=== PATIENT | male | born 1980 | race Asian ===

== ENCOUNTER 2024-12-02 19:26 | Emergency (ER) | payer OTHER, SELFPAY ==
--- OUTSIDE RECORDS SUMMARY | 2024-12-02 19:28 | XMS_ITS | Clinical Summary ---
[facility] Organization [facility] Address [address] [place] [address] Care Team Providers Care Taxonomist Name Role Phone Francois Pak MD Primary Care Provider [phone] Source Comments You are receiving this document as you are listed as the primary care provider,follow-up provider, or the patient has been referred to you for consultation.This is in compliance with the Medicare andCommunity [facility] Cent[facility]aid EHR Incentive Program,which states Providers who transition their patient to another setting of careor provider of care or refers their patient to another provider of care shouldprovide summary care record for each transition of care or referral. [employer] Allergies Active Allergy Reactions Criticality Noted Date Comments Bee Venom Anaphylaxis High 01/13/2023 Medications Medication Sig Dispensed Refills Start Date End Date Status polyethylene glycol-electrolyte (GO-LYTELY) 236 g oral solution Take as directed in patient instructions: drink 2000 mL at 6PM the evening before your procedure and 2000 mL 4 hours before leaving home for your procedure. 4000 mL 03/09/2024 Active bisacodyl (DULCOLAX) 5 MG enteric coated tablet Take as directed in patient instructions: 4 tablets by mouth once at 5 PM the evening before your procedure. 4 Tablet 03/09/2024 Active ondansetron (ZOFRAN) 4 MG tablet Take 1 Tablet (4 mg) by mouth every 8 hours as needed for Nausea (during bowel prep). 3 Tablet 03/09/2024 Active Active Problems Problem Noted Date Diagnosed Date Brain aneurysm 12/18/2023 Overview (12/18/2023): 12/17/2023 MRA Head: 2.2 x 2.2 mm arising from the left ophthalmic segment internal carotid artery. Repeat MRA in 6 months (May 2024) Hypertriglyceridemia 09/18/2016 Immunizations Name Administration Dates Next Due Influenza IIV4 (Quadrivalent) 0.5mL (41892) 07/28 MMR 07/27/2010 Pfizer Monovalent 12+ Purple Top 12/31/2021,0505/2021,02/12/2021 Tdap 12/31/2021,03/19/2011,10/27/2010 Family History Medical History Relation Name Comments Cancer, Colon Negative Family History Cancer, Prostate Negative Family History Social History Tobacco Use Types Packs/Day Years Used Date Smoking Tobacco: Never Passive Smoke Exposure: Never Smokeless Tobacco: Never Tobacco Cessation:Counseling Given: Not Answered Alcohol Use Standard Drinks/Week Comments Not Currently 1 (1 standard drink = 0.6 oz pur e alcohol) PHQ-2 Answer Date Recorded PHQ-2 Score 0 01/13/2023 Financial Resource Strain Answer Date R ecorded Is it hard for you to pay fo r the very basics like food, housing, medical care or heating? No 01/13/2023 Food Insecurity Answer Date Recorded Does your food run out before you have the money to buy more? No 01/13/2023 Transportation Needs Answer Date Record ed Does a lack of transportatio n keep you from your medical appointments or from getting your medications? No 023 Sex and Gender Information Value Date Recorded Sex Assigned at Male 12/31/2021 9:20 AM RN L AND D Gender Identity Male 12/31/2021 9:20 AM RN L AND D Sexual Orientation Asexual 12/31/2021 9: 20 AM RN L AND D Last Filed Vital Signs Vital Sign Reading Time Taken Comments Blood Pressure 129/79 12/31/2023 11:33 AM RN L AND D Pulse 69 12/31/2023 11:33 AM RN L AND D Temperature 36.9 C (98.5 F) 09/13/2020 9:04 AM RN L AND D Respiratory Rate 16 01/13/2023 4:26 PM CDT Oxygen Saturation 98% 09/13/2020 9:04 AM RN L AND D Inhaled Oxygen Concentration - - Weight 87.1 kg (192 lb) 12/15/2023 9:03 AM RN L AND D Height 188.5 cm (6' 2.21) 01/13/2023 4:26 PM CD T Body Mass Index 24.51 01/13/2023 4:26 PM CDT Plan of Treatment Health Maintenance Due Date Last Done Comments Colon Cancer Screening Plan Due 1980 HepB (1) 1997 Adult Preventive Visit 01/14/2024 3, 12/31/2021 COVID-19 Vaccine (4 - 2023-2 5 season) 2024 12/31/2021, 03/03/2021, 02/12/2021 Influenza (#1) 2024 08/17/2020 Cholesterol 01/14/2028 01/13/2023, 12/31/2021 Zoster/Shingles (1 of 2) 2028 DTaP/Tdap/Td (4 - Tdap) 01/01/2032 01/01/20, 03/19/2011, 10/27/2010 HIV Screening (Preventive Services) Completed 01/13/2023 Hep C Screening (Preventive Services) Completed 01/13/2023 HepA Aged Out No longer eligi ble based on patient's age to complete this topic Hib Aged Out No longer eligi ble based on patient's age to complete this topic IPV (Polio) Aged Out No longer eligi ble based on patient's age to complete this topic MCV4 Aged Out No longer eligi ble based on patient's age to complete this topic Pneumococcal Aged Out No longer eligi ble based on patient's age to complete this topic Procedures Procedure Name Priority Date/Time Associated Diagnosis Comments HIV 1/2 AG/AB 4TH GEN Routine 01/13/2023 5:19 PM CDT Screening for HIV (human immunodeficiency virus) HEPATITIS C ANTIBODY, WITH REFLEX Routine 01/13/2023 5:19 PM CDT Need for hepatitis C screening test LIPID PANEL & DIRECT LDL (IF NEEDED) Routine 01/13/2023 5:19 PM CDT Hypertriglyceridemia from Last 3 Months or Most Recently Relevant to Health Maintenance Results * HIV 1/2 Ag/Ab 4th Generation (01/13/2023 5:19 PM CDT) HIV 1/2 Antigen/Antib otilia (4th generation) Negative (Non Reactive) Negative (Non Reactive) 01/13/2023 10:02 PM CDT [facility] Comment:HIV-1 p24 Antigen an d HIV-1/HIV-2 Antibody not detected Blood Venipuncture / Unknown 01/13/2023 5:19 PM CDT 01/13/2023 5:19 PM CDT Francois Pak MD LAB_1 [facility] [address] * (ABNORMAL) Lipid Panel and Direct LDL(If Needed) (01/13/2023 5:19 PM CDT) [facility] Cholesterol 219(H) 0 - 199 mg/dL 01/13/2023 8:38 PM CDT [facility] Triglyceride 174(H) <=149 mg/dL 01/13/2023 8:38 PM T [facility] HDL Cholesterol 40 >=40 mg/dL 3 8:38 PM T [facility] LDL, Calculated 144(H) <130 mg/dL 3 8:38 PM T [facility] Non HDL Chol, Calculated 179(H) <=159 mg/dL 01/13/2023 8:38 PM T [facility] Cholesterol/HDL Ratio 5.5 01/13/2023 8:38 PM T [facility] Hours Fasting 12 01/13/2023 8:38 PM T [facility] Blood Venipuncture / Unknown 01/13/2023 5:19 PM CDT 01/13/2023 5:19 PM CDT Francois Pak MD LAB_1 [facility] [address] [place] [address], [place] [phone] [facility] [address] [place] [address], [place] [phone] * Hepatitis C Antibody, with Reflex (01/13/2023 5:19 PM CDT) Hepatitis C Antibody Negative (Non Reactive) Negative (Non Reactive) 01/13/2023 10:02 PM CDT [facility] Comment:Antibodies to HCV no t detected. Does not exclude the possiblity of exposure to HCV. Blood Venipuncture / Unknown 01/13/2023 5:19 PM CDT 01/13/2023 5:19 PM CDT Francois Pak MD [facility]_1 [facility] [address] [place] [address], [facility] from Last 3 Months or Most Recently Relevant to Health Maintenance Care Teams Taxonomist Relationship Specialty [place] [address] [place] [address] PCP - General Family Practice 01/19/23
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
[2024-12-02 20:09] VITALS: BP 130/77; PULSE 64; RESP 16; TEMP 36.8; O2SAT 99; BMI 23.6
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
[2024-12-02] MEDS: ACETAMINOPHEN 500 MG TABLET 1000 MG PO (20:33)
[2024-12-02] MEDS: TETANUS/DIPHTH/PERTUSSIS 0.5 ML SYRINGE IM (20:34)
--- OUTSIDE RECORDS SUMMARY | 2024-12-02 21:03 | XMS_ITS | Clinical Summary ---
[facility] Address [address] [place] [address] Care Team Providers Care Medical Record Clerk Name Role Phone Francois Pak MD Primary Care Provider [phone] Source Comments You are receiving this document as you are listed as the primary care provider,follow-up provider, or the patient has been referred to you for consultation.This is in compliance with the Medicare and[facility] Hospital[facility] EHR Incentive Program,which states Providers who transition their patient to another setting of careor provider of care or refers their patient to another provider of care shouldprovide summary care record for each transition of care or referral. [place] Allergies Active Allergy Reactions Criticality Noted Date [...] Dates Next Due Influenza IIV4 (Quadrivalent) 0.5mL (56449) 07/28 MMR 07/27/2010 Pfizer Monovalent 12+ Purple [...] Sex Assigned at Male 12/31/2021 9:20 AM SENIOR WEB DEVELOPER Gender Identity Male 12/31/2021 9:20 AM SENIOR WEB DEVELOPER Sexual Orientation Asexual 12/31/2021 9: 20 AM SENIOR WEB DEVELOPER Last Filed Vital Signs Vital Sign Reading Time Taken Comments Blood Pressure 129/79 12/31/2023 11:33 AM SENIOR WEB DEVELOPER Pulse 69 12/31/2023 11:33 AM SENIOR WEB DEVELOPER Temperature 36.9 C (98.5 F) 09/13/2020 9:04 AM SENIOR WEB DEVELOPER Respiratory Rate 16 01/13/2023 4:26 PM CDT Oxygen Saturation 98% 09/13/2020 9:04 AM SENIOR WEB DEVELOPER Inhaled Oxygen Concentration - - Weight 87.1 kg (192 lb) 12/15/2023 9:03 AM SENIOR WEB DEVELOPER Height 188.5 cm (6' 2.21) 01/13/2023 4:26 [...] Negative (Non Reactive) 01/13/2023 10:02 PM CDT [facility] Comment:HIV-1 p24 Antigen an d HIV-1/HIV-2 Antibody not detected Blood Venipuncture / Unknown 01/13/2023 5:19 PM CDT 01/13/2023 5:19 PM CDT Francois Pak MD LAB_1 [facility] [address] * (ABNORMAL) Lipid Panel and Direct LDL(If Needed) (01/13/2023 5:19 PM CDT) [facility] Cholesterol 219(H) 0 - 199 mg/dL 01/13/2023 8:38 PM CDT [facility] Triglyceride 174(H) <=149 mg/dL 01/13/2023 8:38 PM T [facility] HDL Cholesterol 40 >=40 mg/dL 3 8:38 PM T [facility] LDL, Calculated 144(H) <130 mg/dL 3 8:38 PM T [facility] Non HDL Chol, Calculated 179(H) <=159 mg/dL 01/13/2023 8:38 PM T [facility] Cholesterol/HDL Ratio 5.5 01/13/2023 8:38 PM T [facility] Hours Fasting 12 01/13/2023 8:38 PM T [facility] Blood Venipuncture / Unknown 01/13/2023 5:19 PM CDT 01/13/2023 5:19 PM CDT Francois Pak MD LAB_1 [facility] [address] [place] [address], [place] [phone] [facility] [address] [place] [address], [place] [phone] * Hepatitis C Antibody, with Reflex (01/13/2023 5:19 PM CDT) Hepatitis C Antibody Negative (Non Reactive) Negative (Non Reactive) 01/13/2023 10:02 PM CDT [facility] Comment:Antibodies to HCV no t detected. Does not exclude the possiblity of exposure to HCV. Blood Venipuncture / Unknown 01/13/2023 5:19 PM CDT 01/13/2023 5:19 PM CDT Francois Pak MD [facility]1 [facility] [address] [place] [address], [facility] from Last 3 Months or Most Recently Relevant to Health Maintenance Care Teams Medical Record Clerk Relationship Specialty [place] [address] [place] [address] PCP - General Family Practice 01/19/23
--- OUTSIDE RECORDS SUMMARY | 2024-12-02 21:03 | XMS_ITS | Clinical Summary ---
Author Organization [place] Address [address] [place] [id number] Care Team Providers Care Kiln Placer Name Role Phone [facility] Primary Care Provider Allergies No known active [...] Negative Mother Hyperlipidemia Mother C.A.D. Paternal Grandfather MS Hypertension Paternal Grandmother Breast Cancer No family [...] AM CDT Legal Sex Male 5:13 AM SPANISH SPEAKING BABYSITTER Gender Identity Male 06/16/2019 6:46 AM CDT [...] 84.8 kg (187 lb) 12/24/2019 12:51 PM SPANISH SPEAKING BABYSITTER Height 193 cm (6' 4) 06/24/2019 3:44 [...] this topic Medical Devices Implanted Type Area Director Gift Device Identifier Shelf Expiration Date Model / Serial / Lot Mesh Progrip Laparoscopic 5.9x3.9 Parietex Self-Fix [id number] Implanted:Qty: 1 on 06/01/2019 by Antoine Zimmerman MD at [facility] Mesh Right: Inguinal COVIDIEN 02/23/2022 [id number] / / [id number] Mesh Progrip Laparoscopic 5.9x3.9 Parietex Self-Fix [id number] Implanted:Qty: 1 on 06/01/2019 by Antoine Zimmerman MD at [facility] Mesh Left: Inguinal COVIDIEN 02/23/2022 [id number] / / [id number] Procedures Procedure Name Priority Date/Time Associated Diagnosis Comments COMPREHENSIVE METABOLIC PANEL STAT 12/21/2019 7:31 PM SPANISH SPEAKING BABYSITTER HIV ANTIGEN ANTIBODY COMBO Routine 04/30/2019 10:05 AM CDT Encounter for screening for HIV LIPID REFLEX TO DIRECT LDL PANEL Routine 04/30/2019 10:05 AM CDT CARDIOVASCULAR SCREENING; LDL GOAL LESS THAN 160 Hypertriglyceridem ia from Last 3 Months or Most Recently Relevant to Health Maintenance Results * Comprehensive metabolic panel (12/21/2019 7:31 PM SPANISH SPEAKING BABYSITTER) Sodium 139 133 - 144 mmol/L 12/21/2019 8:01 PM [facility] Potassium 3.7 3.4 - 5.3 mmol/L 12/21/2019 8:01 PM [facility] Chloride 108 94 - 109 mmol/L 12/21/2019 8:01 PM [facility] Carbon Dioxide 25 20 - 32 mmol/L 12/21/2019 8:07 PM [facility] Anion Gap 6 3 - 14 mmol/L 12/21/2019 8:07 PM [facility] Glucose 91 70 - 99 mg/dL 12/21/2019 8:07 PM [facility] Urea Nitrogen 12 7 - 30 mg/dL 12/21/2019 8:07 PM [facility] Creatinine 0.86 0.66 - 1.25 mg/dL 12/21/2019 8:07 PM [facility] GFR Estimate >90 >60 mL/min/{1. 73_m2} 12/21/2019 8:07 PM [facility] Comment: Non GFR Calc Starting 10/13/2018, serum creatinine based estimated GFR (eGFR) will be calculated using the Chronic Kidney Disease Epidemiology Collaboration (CKD-EPI) equation. GFR Estimate If Black >90 >60 mL/min/{1. 73_m2} 12/21/2019 8:07 PM [facility] Comment: GFR Calc Starting 10/13/2018, serum creatinine based estimated GFR (eGFR) will be calculated using the Chronic Kidney Disease Epidemiology Collaboration (CKD-EPI) equation. Calcium 8.8 8.5 - 10.1 mg/dL 12/21/2019 8:07 PM [facility] Bilirubin Total 0.5 0.2 - 1.3 mg/dL 12/21/2019 8:10 PM SPANISH SPEAKING BABYSITTER [facility] Albumin 3.8 3.4 - 5.0 g/dL 12/21/2019 8:10 PM [facility] Protein Total 7.6 6.8 - 8.8 g/dL 12/21/2019 8:10 PM [facility] Alkaline Phosphatase 77 40 - 150 U/L 12/21/2019 8:10 PM [facility] ALT 25 0 - 70 U/L 12/21/2019 8:10 PM [facility] AST 20 0 - 45 U/L 12/21/2019 8:10 PM [facility] Blood specimen (specimen) 12/21/2019 7:31 PM SPANISH SPEAKING BABYSITTER 12/21/2019 7:44 PM SPANISH SPEAKING BABYSITTER us Amelia Jaime DO LAB - BLOOD ORDERABLES Fin al Result [facility] [address] [place], [place] [address] [phone] * HIV Antigen Antibody Combo (04/30/2019 10:05 AM CDT) HIV Antigen Antibody Combo Nonreactive NR^Nonrea ctive 05/01/2019 10:10 AM CDT [facility] Comment:HIV-1 p24 Ag & HIV-1 /HIV-2 Ab Not Detected Blood specimen (specimen) 04/30/2019 10:05 AM CDT 04/30/2019 10:06 AM CDT us Adelaide Salazar PA-C LAB - BLOOD ORDER JARROD Final Result [facility] [address] [place] [address] * (ABNORMAL) Lipid panel reflex to direct LDL Fasting (04/30/2019 10:05 AM CDT) Cholesterol 201(H) <200 mg/dL 04/30/2019 5:38 PM CDT [facility] Comment:Desirable: <200 mg/d l Triglycerides 282(H) <150 mg/dL 04/30/2019 5:38 PM CDT [facility] Comment: Borderline high: 150-199 mg/dl High: 200-499 mg/dl Very high: >499 mg/dl Fasting specimen HDL Cholesterol 37(L) >39 mg/dL 9 5:38 PM CDT [facility] LDL Cholesterol Calculated 108(H) <100 mg/dL 04/30/2019 5:38 PM CDT [facility] Comment: Above desirable: 100-129 mg/dl Borderline High: 130-159 mg/dL High: 160-189 mg/dL Very high: >189 mg/dl Non HDL Cholesterol 164(H) <130 mg/dL 04/30/2019 5:38 PM CDT [facility] Comment: Above Desirable: 130-159 mg/dl Borderline high: 160-189 mg/dl High: 190-219 mg/dl Very high: >219 mg/dl Blood specimen (specimen) 04/30/2019 10:05 AM CDT 04/30/2019 10:06 AM CDT Adelaide Salazar PA-C LAB - BLOOD ORDER JARROD Final Result [facility] [address] [place] [address] from Last 3 Months or Most Recently Relevant to Health Maintenance Insurance [employer] [place] [id number] [facility] [employer] Care Teams Kiln Placer Relationship Specialty Start Date End Date [facility] - [address] [address] PCP - General Internal Medicine 08/09/18
[2024-12-02] MEDS: LIDOCAINE/EPINEP/TETRACAINE 3 ML GEL..ML. TOPICAL (21:21)
== END 2024-12-02 21:23 | disposition home or self-care (01) ==
PROVIDERS: Emergency Provider Family Medicine; PCP Family Medicine
DX: S01.21XA Laceration without foreign body of nose, initial encounter (principal); S02.2XXA Fracture of nasal bones, initial encounter for closed fracture; W20.8XXA Other cause of strike by thrown, projected or falling object, initial encounter; Y99.0 Civilian activity done for income or pay
CPT/HCPCS: 12001; 70160; 90471; 90715; 99284; A9270